=== PATIENT | female | born 1980 | race Asian ===

== ENCOUNTER 2018-06-24 16:10 | Emergency (ER) | payer OTHER ==
[2018-06-24 16:26] VITALS: BP 141/87; PULSE 90; TEMP 98.3; BMI 39.0
--- NOTE | 2018-06-24 17:33 | PDOC ---
History of Present Illness - General Chief Complaint: Pain Stated Complaint: RT BODYACHES Time Seen by Provider: 06/24/18 16:47 History Source: Patient Exam Limitations: Clinical Condition - History of Present Illness Initial Comments: 06/24/18 17:27 Patient with no significant past medical history present with complaint of 4 day history of right anterior chest wall pain and posterior shoulder pain with pain to lateral side of right arm which is worse when movement. Patient reported increased pain with deep breathing to the right side chest. Denies any trauma or injury to chest and shoulder. Patient reported intermittent shortness of breath from pain. Denies numbness and tingling sensation. Denies chest pain now, nausea, vomiting or shortness of breath now. Patient did not take anything for pain Timing/Duration: other (4 days) Past History - Past Medical History Allergies/Adverse Reactions: Allergies Allergy/AdvReac Type Severity Reaction Status Date / Time No Known Allergies Allergy Verified 06/24/18 16:21 Home Medications: Ambulatory Orders Methocarbamol [Robaxin -] 500 mg PO BID #14 tablet 06/24/18 Naproxen 500 mg PO BID PRN #20 tablet 06/24/18 COPD: No - Suicide/Smoking/Psychosocial Hx Smoking History: Never smoked Review of Systems - Review of Systems Able to Perform ROS?: Yes Is the patient limited Azeri proficient: No Constitutional: No: Malaise, Weakness HEENTM: No: Symptoms Reported, See HPI, Eye Pain, Blurred Vision, Tearing, Recent change in vision, Double Vision, Cataracts, Ear Pain, Ocular Prothesis, Ear Discharge, Nose Pain, Nose Congestion, Tinnitus, Nose Bleeding, Hearing Loss , Throat Pain, Throat Swelling, Mouth Pain, Dental Problems, Difficulty Swallowing, Mouth Swelling, Other Respiratory: No: Symptoms reported, See HPI, Cough, Orthopnea, Shortness of Breath, SOB with Exertion, SOB at Rest, Stridor, Wheezing, Productive cough, Hemoptysis, Other Cardiac (ROS): Yes: See HPI, Other (right side chest wall pain). No: Chest Pain , Irregular Heart Rate, Lightheadedness, Palpitations, Syncope, Chest Tightness ABD/GI: No: Nausea, Vomiting Musculoskeletal: Yes: See HPI, Back Pain (upper back on right side ), Muscle Pain (posterior right shoulder and right anterior chest wall), Other (right upper arm pain). No: Joint Stiffness Neurological: No: Headache, Numbness, Paresthesia, Tingling, Weakness, Dizziness All Other Systems: Reviewed and Negative *Physical Exam - Vital Signs Last Vital Signs Temp Pulse Resp BP Pulse Ox 98.3 F 90 16 141/87 98 06/24/18 16:24 06/24/18 16:24 06/24/18 16:24 06/24/18 16:24 06/24/18 16:24 - Physical Exam Comments: 06/24/18 17:31 GENERAL: Well developed, well nourished. Awake and alert. No acute distress. CARDIOVASCULAR: Regular rate and rhythm. No murmurs, rubs, or gallops. PULMONARY: No evidence of respiratory distress. Lungs clear to auscultation bilaterally. No wheezing, rales or rhonchi. ABDOMINAL: Soft. Non-tender. Non-distended. No rebound or guarding. No organomegaly. Normoactive bowel sounds MUSCULOSKELETAL : mild tenderness over posterior right shoulder and anterior lateral second costochondral region on the right side of her anterior chest. Mild tenderness over lateral deltoid muscle of right arm. No bony deformities EXTREMITIES: No cyanosis. No clubbing. No edema. No calf tenderness. SKIN: Warm and dry. Normal capillary refill. No rashes. No jaundice. NEUROLOGICAL: Alert, awake, appropriate. No motor deficits in the lower extremities. Gait is normal without ataxia. PSYCHIATRIC: Cooperative. Good eye contact. Appropriate mood and affect. General Appearance: Yes: Nourished, Appropriately Dressed. No: Apparent Distress Moderate Sedation - Procedure Monitoring Vital Signs: Procedure Monitoring Vital Signs Temperature 98.3 F 06/24/18 16:24 Pulse Rate 90 06/24/18 16:24 Respiratory Rate 16 06/24/18 16:24 Blood Pressure 141/87 06/24/18 16:24 O2 Sat by Pulse Oximetry (%) 98 06/24/18 16:24 ED Treatment Course - RADIOLOGY Radiology Studies Ordered: Category Date Time Status CHEST PA & LAT [RAD] Stat Radiology 06/24/18 17:06 Ordered SHOULDER-RIGHT [RAD] Stat Radiology 06/24/18 17:06 Ordered Medical Decision Making - Medical Decision Making 06/24/18 18:17 Patient with no sick or past medical history present with complaint of 4 day history of right-sided chest wall, right upper back and right shoulder pain without trauma or injury. Patient reported increased pain with deep breathing to upper back and chest. Reported increased pain to right shoulder with elevation of right upper arm. Exam significant for mild reproducible right-sided chest wall tenderness with mild tenderness to posterior right shoulder and lateral deltoid muscle in no acute distress. Normal cardio exam. Lungs clear to auscultation bilateral. Symptoms likely muscle skeletal sprain. X-ray of right shoulder and chest shows no acute pathology. Patient stable for discharge on naproxen as needed for pain with follow-up in 2 days with PCP for reassessment. *DC/Admit/Observation/Transfer Diagnosis at time of Disposition: Costochondral chest pain Strain of right shoulder Qualifiers: Encounter type: initial encounter Qualified Code(s): S46.911A - Strain of unspecified muscle, fascia and tendon at shoulder and upper arm level, right arm , initial encounter - Discharge Dispostion Disposition: HOME Condition at time of disposition: Stable Decision to Admit order: No - Prescriptions Prescriptions: Methocarbamol [Robaxin -] 500 mg PO BID #14 tablet Naproxen 500 mg PO BID PRN #20 tablet PRN Reason: pain - Referrals Referrals: Castillo Wyatt MD [Primary Care Provider] - - Patient Instructions Printed Discharge Instructions: DI for Costochondritis Additional Instructions: Your x-ray was normal. Your symptoms likely from muscle strain. Take prescribed medication as needed for pain. Follow-up with primary care as soon as possible for reassessment. - Post Discharge Activity
== END 2018-06-24 18:18 | disposition home or self-care (01) ==
LOC: JERFT 16:10
DX: S46.811A Strain of other muscles, fascia and tendons at shoulder and upper arm level, right arm, initial encounter (principal); M94.0 Chondrocostal junction syndrome [Tietze]; X50.9XXA Other and unspecified overexertion or strenuous movements or postures, initial encounter; Y93.89 Activity, other specified; Y92.89 Other specified places as the place of occurrence of the external cause; Y99.8 Other external cause status
CPT/HCPCS: 71046-TC-FY; 73030-TC-RT-FY; 99281-25

== ENCOUNTER 2019-04-07 10:33 | Emergency (ER) | payer OTHER ==
[2019-04-07 10:43] VITALS: BP 134/78; PULSE 97; TEMP 97.9; BMI 40.2
[2019-04-07] MEDS ORDERED: NAPROXEN 500 MG TABLET (FP) PO ONE (11:10)
[2019-04-07] MEDS ORDERED: NAPROXEN 500 MG TABLET (FP) ONE (11:13)
--- NOTE | 2019-04-07 11:14 | PDOC ---
History of Present Illness - General Chief Complaint: Ear Problem Stated Complaint: RT. EAR PAIN Time Seen by Provider: 04/07/19 11:06 History Source: Patient Exam Limitations: Clinical Condition - History of Present Illness Initial Comments: 04/07/19 11:28 Patient with no significant past medical history present with complaint of right ear pain and pain in front of right ear for 1 week. Denies fever, decreased hearing, headache, dizziness, nausea or vomiting. Patient did not take anything for symptoms Is this a multiple visit Asthma Patient?: No Timing/Duration: 1 week Past History - Past Medical History Allergies/Adverse Reactions: Allergies Allergy/AdvReac Type Severity Reaction Status Date / Time No Known Allergies Allergy Verified 06/24/18 16:21 Home Medications: Ambulatory Orders Methocarbamol [Robaxin -] 500 mg PO BID #14 tablet 06/24/18 Naproxen 500 mg PO BID PRN #20 tablet 04/07/19 COPD: No - Psycho Social/Smoking Cessation Hx Smoking History: Never smoked Review of Systems - Review of Systems Able to Perform ROS?: Yes Is the patient limited Moroccan proficient: No Constitutional: No: Chills, Fever, Malaise HEENTM: Yes: Symptoms Reported, See HPI, Ear Pain (right ear). No: Eye Pain, Blurred Vision, Tearing, Recent change in vision, Double Vision, Cataracts, Ocular Prothesis, Ear Discharge, Nose Pain, Nose Congestion, Tinnitus, Nose Bleeding, Hearing Loss, Throat Pain, Throat Swelling, Mouth Pain, Dental Problems, Difficulty Swallowing, Mouth Swelling, Other Respiratory: No: Symptoms reported, See HPI, Cough, Orthopnea, Shortness of Breath, SOB with Exertion, SOB at Rest, Stridor, Wheezing, Productive cough, Hemoptysis, Other Cardiac (ROS): No: Symptoms Reported, See HPI, Chest Pain, Edema, Irregular Heart Rate, Lightheadedness, Palpitations, Syncope, Chest Tightness, Other ABD/GI: No: Symptoms Reported, Nausea, Vomiting Musculoskeletal: No: Symptoms Reported Integumentary: No: Symptoms Reported Neurological: No: Symptoms reported, Headache, Numbness, Dizziness All Other Systems: Reviewed and Negative *Physical Exam - Vital Signs Last Vital Signs Temp Pulse Resp BP Pulse Ox 97.9 F 97 H 20 134/78 99 04/07/19 10:40 04/07/19 10:40 04/07/19 10:40 04/07/19 10:40 04/07/19 10:40 - Physical Exam 04/07/19 11:31 GENERAL: Well developed, well nourished. Awake and alert. No acute distress. HEENT: Bilateral ear canals nonerythematous. Tympanic membrane normal bilateral. Normocephalic, atraumatic. PERRLA, EOMI. No conjunctival pallor. Sclera are non-icteric. Moist mucous membranes. Oropharynx is clear.mild tenderness to right TMJ which is worse with occlusion of mouth against resistance. NECK: Supple. Full ROM. CARDIOVASCULAR: Regular rate and rhythm. No murmurs, rubs, or gallops. PULMONARY: No evidence of respiratory distress. Lungs clear to auscultation bilaterally. No wheezing, rales or rhonchi. MUSCULOSKELETAL Normal range of motion at all joints. mild tenderness to right TMJ which is worse with occlusion of mouth against resistance. SKIN: Warm and dry. Normal capillary refill. No rashes. NEUROLOGICAL: Alert, awake, appropriate. Gait is normal without ataxia. PSYCHIATRIC: Cooperative. Good eye contact. Appropriate mood General Appearance: Yes: Nourished, Appropriately Dressed. No: Apparent Distress Medical Decision Making - Medical Decision Making 04/07/19 11:29 Patient with no significant past medical history present with complaint of right ear pain and pain in front of right ear for 1 week. Denies fever, decreased hearing, headache, dizziness, nausea or vomiting. Patient did not take anything for symptoms Exam significant for mild tenderness to right TMJ which is worse with occlusion of mouth against resistance. Bilateral ear canals normal with no erythema. Tympanic membrane normal bilateral. Patient afebrile. Patient symptoms likely TMJ arthralgia. Naproxen 500 mg p.o. ordered for pain. Patient stable for discharge on naproxen as needed for pain with advised to do hot compress and follow-up with oral surgery Discharge - Discharge Information Problems reviewed: Yes Clinical Impression/Diagnosis: Arthralgia of right temporomandibular joint Condition: Stable Disposition: HOME - Admission No - Additional Discharge Information Prescriptions: Naproxen 500 mg PO BID PRN #20 tablet PRN Reason: pain - Follow up/Referral Referrals: Avery Escudero [Non Staff, Medical] - 2 Days - Patient Discharge Instructions Patient Printed Discharge Instructions: DI for Temporomandibular Disorder Additional Instructions: Your symptoms is TMJ which is inflammation of the jawline. Take prescribed medication as needed for pain apply hot compress to jaw 2-3 times a day as needed for pain. Follow-up referred dentist if no improvement in 3 days - Post Discharge Activity
== END 2019-04-07 11:15 | disposition home or self-care (01) ==
LOC: JERFT 10:33
DX: M26.621 Arthralgia of right temporomandibular joint (principal)
CPT/HCPCS: 99281-25

== ENCOUNTER 2019-07-13 18:04 | Emergency (ER) | payer OTHER ==
[2019-07-13 18:15] VITALS: BMI 38.4
[2019-07-13] MEDS ORDERED: ACETAMINOPHEN 325 MG TABLET (FP) PO ONE (18:54)
[2019-07-13] MEDS ORDERED: METHOCARBAMOL 500 MG TABLET PO ONE (19:15)
--- NOTE | 2019-07-13 19:17 | PDOC ---
History of Present Illness - General Chief Complaint: Shortness of Breath Stated Complaint: BACK PAIN Time Seen by Provider: 07/13/19 18:44 History Source: Patient Exam Limitations: Clinical Condition - History of Present Illness Initial Comments: 07/13/19 19:12 Patient with no significant past medical history present with complaint of 2 days history of upper back and mid sternal chest pain with shortness of breath. Denies palpitation, nausea, vomiting, fever, dizziness, weakness. Patient has not taken anything for pain. Denies any other symptoms. Denies sick contact or recent travel or known contact with anybody with covid positive Is this a multiple visit Asthma Patient?: No Timing/Duration: other (2 days) Past History - Past Medical History Allergies/Adverse Reactions: Allergies Allergy/AdvReac Type Severity Reaction Status Date / Time No Known Allergies Allergy Verified 07/13/19 18:26 Home Medications: Ambulatory Orders Methocarbamol [Robaxin -] 500 mg PO BID #14 tablet 07/13/19 Methylprednisolone [Medrol Dose Nixon] 4 mg PO ASDIR #21 tablet 07/13/19 COPD: No - Psycho Social/Smoking Cessation Hx Smoking History: Never smoked Hx Alcohol Use: No Drug/Substance Use Hx: No Review of Systems - Review of Systems Able to Perform ROS?: Yes Is the patient limited Lao proficient: No Constitutional: No: Chills, Fever, Malaise HEENTM: No: Symptoms Reported, See HPI, Eye Pain, Blurred Vision, Tearing, Recent change in vision, Double Vision, Cataracts, Ear Pain, Ocular Prothesis, Ear Discharge, Nose Pain, Nose Congestion, Tinnitus, Nose Bleeding, Hearing Loss, Throat Pain, Throat Swelling, Mouth Pain, Dental Problems, Difficulty Swallowing, Mouth Swelling, Other Respiratory: Yes: Symptoms reported, See HPI, Shortness of Breath, SOB at Rest. No: Cough, Orthopnea, SOB with Exertion, Stridor, Wheezing, Productive cough, Hemoptysis, Other Cardiac (ROS): Yes: Symptoms Reported, See HPI, Chest Pain (intermittent midsternal pain). No: Edema, Irregular Heart Rate, Lightheadedness, Palpitat ions, Syncope, Chest Tightness, Other ABD/GI: No: Symptoms Reported, See HPI, Abdominal Distended, Abd. Pain w/ defecation, Blood Streaked Bowels, Constipated, Diarrhea, Difficulty Swallowing, Nausea, Poor Appetite, Poor Fluid Intake, Rectal Bleeding, Vomiting, Indigestion, Abdominal cramping, Tarry Stools, Other Musculoskeletal: Yes: Symptoms Reported, See HPI, Back Pain (upper back pain) Integumentary: No: Symptoms Reported All Other Systems: Reviewed and Negative *Physical Exam - Vital Signs Last Vital Signs Temp Pulse Resp BP Pulse Ox 99.0 F 110 H 16 141/91 100 07/13/19 18:13 07/13/19 18:13 07/13/19 18:13 07/13/19 18:13 07/13/19 18:13 - Physical Exam 07/13/19 19:17 GENERAL: Well developed, well nourished. Awake and alert. No acute distress. HEENT: Normocephalic, atraumatic. PERRLA, EOMI. No conjunctival pallor. Sclera are non-icteric. Moist mucous membranes. Oropharynx is clear. NECK: Supple. Full ROM. CARDIOVASCULAR: Regular rate and rhythm. No murmurs, rubs, or gallops. Distal pulses are 2+ and symmetric. PULMONARY: No evidence of respiratory distress. Lungs clear to auscultation bilaterally. No wheezing, rales or rhonchi. ABDOMINAL: Soft. Non-tender. Non-distended. No rebound or guarding. No organomegaly. Normoactive bowel sounds. MUSCULOSKELETAL Normal range of motion at all joints. Mild bilateral paravertebral muscle of posterior thoracic spine of T2-C4. No midline tenderness SKIN: Warm and dry. Normal capillary refill. No rashes. No cyanosis. NEUROLOGICAL: Alert, awake, appropriate. Gait is normal without ataxia. PSYCHIATRIC: Cooperative. Good eye contact. Appropriate mood General Appearance: Yes: Nourished, Appropriately Dressed. No: Apparent Distress ED Treatment Course - LABORATORY CBC & Chemistry Diagram: 07/13/19 19:05 - RADIOLOGY Radiology Studies Ordered: Category Date Time Status CHEST PA & LAT [RAD] Stat Radiology 07/13/19 18:53 Ordered Medical Decision Making - Medical Decision Making 07/13/19 19:14 Patient with no significant past medical history present with complaint of 2 days history of upper back and mid sternal chest pain with shortness of breath. Denies palpitation, nausea, vomiting, fever, dizziness, weakness. Patient has not taken anything for pain. Denies any other symptoms. Denies sick contact or recent travel or known contact with anybody with covid positive Exam significant for mild point tenderness to bilateral paravertebral muscle of upper thoracic spine T2-T4. No midline tenderness. Lungs clear to auscultation bilateral. Normal cardio exam. Patient in no acute distress. Patient symptoms likely musculoskeletal pain versus less likely cardiogenic symptoms. We will do EKG, chest x-ray and cardiac profile to rule out cardiogenic symptoms. Tylenol 650 mg p.o. ordered for pain and Robaxin 500 mg p.o. ordered for possible spasm. Treat based on lab and imaging results 07/13/19 21:33 CBC and cardiac profile lab wnl. EKG shows NSR. CXR shows no acute abnormality. pt symptoms likely MSK pain causing SOB due to pain pt stable for discharge on robaxin prn for spasm and medrol-nixon for anti- inflammatory effect with strict f/u instructions Discharge - Discharge Information Problems reviewed: Yes Clinical Impression/Diagnosis: Dorsalgia of cervicothoracic region, SOB (shortness of breath) Condition: Stable Disposition: HOME - Admission No - Additional Discharge Information Prescriptions: Methylprednisolone [Medrol Dose Nixon] 4 mg PO ASDIR #21 tablet Methocarbamol [Robaxin -] 500 mg PO BID #14 tablet - Follow up/Referral Referrals: Castillo Wyatt MD [Primary Care Provider] - - Patient Discharge Instructions Patient Printed Discharge Instructions: DI for Thoracic Back Pain Additional Instructions: Your chest x-ray was normal. Your blood work was normal. The symptoms likely caused by muscle pain. Take prescribed medication as prescribed for pain. Inc rease fluid intake and rest. Come back to emergency room if worsening shortness of breath, chest pain, weakness with nausea and vomiting - Post Discharge Activity
[2019-07-13] MEDS ORDERED: ACETAMINOPHEN 325 MG TABLET (FP) ONE (19:33)
[2019-07-13] MEDS ORDERED: METHOCARBAMOL 500 MG TABLET ONE (19:33)
[2019-07-13 19:37] LABS: BASO % 1.6 % (0-2.0); EOS % 2.8 % (0-4.5); HEMOGLOBIN 10.6 GM/dL (10.7-15.3); LYMPH % 33.4 % (8-40); MCH 20.6 pg (25.7-33.7); MCHC 31.2 g/dl (32.0-36.0); MEAN PLT VOLUME 8.8 fl (7.5-11.1); MONO % 14.3 % (3.8-10.2); NEUT % 47.9 % (42.8-82.8); PLATELET COUNT 400 K/MM3 (134-434); RBC 5.14 M/mm3 (3.60-5.2); RDW 19.8 % (11.6-15.6)
[2019-07-13 20:29] VITALS: BP 131/76; PULSE 90; TEMP 97.9
[2019-07-13 20:36] LABS: ANISOCYTOSIS 1+; MACROCYTOSIS 1+; OVALOCYTE 1+; TARGET CELLS 1+
[2019-07-13 20:37] LABS: PLATELET ESTIMATE ADEQUATE
--- NOTE | 2019-07-16 14:54 | EKG ---
Test Reason : Blood Pressure : / mmHG Vent. Rate : 091 BPM Atrial Rate : 091 BPM P-R Int : 124 ms QRS Dur : 084 ms QT Int : 356 ms P-R-T Axes : 054 057 043 degrees QTc Int : 437 ms NORMAL SINUS RHYTHM POSSIBLE LEFT ATRIAL ENLARGEMENT BORDERLINE ECG NO PREVIOUS ECGS AVAILABLE Confirmed by INÉS ALONSO MD ([id number]) on 07/16/2019 2:54:08 PM Referred By: Confirmed By:INÉS ALONSO MD
== END 2019-07-13 20:28 | disposition home or self-care (01) ==
LOC: JER 18:04
DX: R06.02 Shortness of breath (principal); M54.6 Pain in thoracic spine
CPT/HCPCS: 36415; 71046-TC-FY; 82550; 82553; 84484; 85025; 93005; 93010; 99285-25

== ENCOUNTER 2020-03-29 11:44 | Emergency (ER) | payer OTHER ==
[2020-03-29 12:10] VITALS: BMI 32.0
[2020-03-29] MEDS ORDERED: SODIUM CHLORIDE 1,000 ML IV STA (12:42)
[2020-03-29] MEDS ORDERED: METOCLOPRAMIDE HCL INJECTION 10 MG/2 ML VIAL IVPUSH ONE (12:42)
[2020-03-29] MEDS ORDERED: KETOROLAC TROMETHAMINE 30 MG/1 ML VIAL IVPUSH ONE (12:42)
[2020-03-29] MEDS ORDERED: KETOROLAC TROMETHAMINE 30 MG/1 ML VIAL ONE (12:56)
[2020-03-29] MEDS ORDERED: METOCLOPRAMIDE HCL INJECTION 10 MG/2 ML VIAL ONE (12:56)
[2020-03-29 15:56] VITALS: BP 122/71; PULSE 84; TEMP 98.1
== END 2020-03-29 15:56 | disposition home or self-care (01) ==
LOC: JER 11:44
PROC: 3E033NZ Introduction of Analgesics, Hypnotics, Sedatives into Peripheral Vein, Percutaneous Approach (ICD-10-PCS; principal; 2020-03-29)
PROC: 3E033GC Introduction of Other Therapeutic Substance into Peripheral Vein, Percutaneous Approach (ICD-10-PCS; 2020-03-29)
PROC: 3E0337Z Introduction of Electrolytic and Water Balance Substance into Peripheral Vein, Percutaneous Approach (ICD-10-PCS; 2020-03-29)
DX: J01.20 Acute ethmoidal sinusitis, unspecified (principal)
CPT/HCPCS: 70450-TC; 99285-25

== ENCOUNTER 2020-10-20 17:35 | Emergency (ER) | payer OTHER ==
[2020-10-20 17:39] VITALS: BP 129/83; PULSE 97; TEMP 97; BMI 38.4
[2020-10-20] MEDS ORDERED: IBUPROFEN 600 MG TABLET (FP) PO ONE ×2 (18:32→18:34)
== END 2020-10-20 19:14 | disposition home or self-care (01) ==
LOC: JERFT 17:35 → JER 17:35 → JERFT 19:14
DX: G44.209 Tension-type headache, unspecified, not intractable (principal)
CPT/HCPCS: 99283-25; C9803; U0003; U0005

== ENCOUNTER 2021-02-13 18:25 | Emergency (ER) | payer OTHER ==
[2021-02-13 19:33] VITALS: BP 144/88; PULSE 97; TEMP 99.5; BMI 38.4
[2021-02-13] MEDS ORDERED: KETOROLAC TROMETHAMINE 30 MG/1 ML VIAL IVPUSH ONE (19:58)
[2021-02-13] MEDS ORDERED: METOCLOPRAMIDE HCL INJECTION 10 MG/2 ML VIAL IVPB ONE (19:58)
[2021-02-13] MEDS ORDERED: METOCLOPRAMIDE HCL INJECTION 10 MG/2 ML VIAL ONE (20:16)
[2021-02-13] MEDS ORDERED: KETOROLAC TROMETHAMINE 30 MG/1 ML VIAL ONE (20:17)
== END 2021-02-13 20:44 | disposition home or self-care (01) ==
LOC: JER 18:25
PROC: 3E0333Z Introduction of Anti-inflammatory into Peripheral Vein, Percutaneous Approach (ICD-10-PCS; principal; 2021-02-13)
PROC: 3E033NZ Introduction of Analgesics, Hypnotics, Sedatives into Peripheral Vein, Percutaneous Approach (ICD-10-PCS; 2021-02-13)
DX: R51.9 Headache, unspecified (principal)
CPT/HCPCS: 99283-25